=== PATIENT | male | born 1970 | race Caucasian/White ===

== ENCOUNTER 2017-10-02 12:59 | Emergency (ER) | payer OTHER ==
--- NOTE | 2017-10-02 13:10 | EDPHY ---
H & P Stated Complaint: heart feels fluttery after drinkng a lot of green tea Time Seen by Provider: 10/02/17 13:09 HPI/ROS: CHIEF COMPLAINT: [ ] HISTORY OF PRESENT ILLNESS: [Need 4: Location, Duration, Severity, Quality, Context, Timing Modifying Factors, Associated S&S] REVIEW OF SYSTEMS: A comprehensive 10 point review of systems is otherwise negative aside from elements mentioned in the history of present illness. Source: Patient Exam Limitations: No limitations - Personal History Current Tetanus Diphtheria and Acellular Pertussis (TDAP): Yes - Medical/Surgical History Other PMH: HTN. gout - Social History Smoking Status: Never smoked - Physical Exam Exam: General Appearance: [Alert, no distress] Eyes: [Pupils equal and round no pallor or injection] ENT, Mouth: [Mucous membranes moist] Respiratory: [There are no retractions, lungs are clear to auscultation] Cardiovascular: [Regular rate and rhythm] Gastrointestinal: [Abdomen is soft and nontender, no masses, bowel sounds normal] Neurological: [A&O, normal motor function, normal sensory exam, normal cranial nerves] Skin: [Warm and dry, no rashes] Musculoskeletal: [Neck is supple nontender] Extremities: [symmetrical, full range of motion] Psychiatric: [Patient is oriented X 3, there is no agitation] ions Constitutional: Initial Vital Signs Temperature (C) 36.5 C 10/02/17 13:00 Heart Rate 82 10/02/17 13:00 Respiratory Rate 18 10/02/17 13:00 Blood Pressure 142/84 H 10/02/17 13:00 O2 Sat (%) 95 10/02/17 13:00 O2 Delivery Mode Room Air Allergies/Adverse Reactions: No Known Allergies Allergy (Verified 10/02/17 13:03) Home Medications: Medication Instructions Recorded Allopurinol [Allopurinol 300 MG 300 mg PO DAILY 08/20/12 (RX)] Amlodipine Besylate 10 mg PO DAILY 08/20/12 Lisinopril [Zestril 20 mg (RX)] 20 mg PO DAILY 08/20/12 Metoprolol Succinate Xr [Toprol Xl 100 mg PO DAILY 08/20/12 100 mg (RX)] Departure - Departure Referrals: Andrew Oscar MD [Primary Care Provider] - As per Instructions
--- NOTE | 2017-10-02 13:40 | EDPHY ---
H & P Time Seen by Provider: 10/02/17 13:09 HPI/ROS: HPI Rapid heart rate, shaking. 47-year-old male by private vehicle. This patient reports that he drank a large amount of green tea this morning. He reports that at approximately 11:30 a.m. He was making his lunch for work when he started feeling very anxious, noticed that his heart rate was fast, he started shaking and trembling in his hands and sweating. By the time he came to the emergency department these symptoms had mostly dissipated. He feels relaxed and comfortable on my encounter and denies any complaints currently. He denies any chest pain or shortness of breath but stated that he felt some tightness in his chest and during the symptoms. He reports that he has had cough in the past as well as green tea and is not have this effect. He does state that he may have had more green tea that he usually drinks. ROS: Constitutional: No fever, no chills. As above. Eyes: No discharge. No changes in vision. ENT: No sore throat. No nasal congestion or rhinorrhea. Respiratory: No cough. No shortness of breath. Cardiac: No chest pain, as above. Gastrointestinal: No abdominal pain, no vomiting, no diarrhea. Genitourinary: No hematuria. No dysuria or increased frequency with urination. Musculoskeletal: No back pain. No neck pain. No myalgias or arthralgias. Skin: No rashes. Neurological: No headache. No focal weakness or altered sensation. Past medical history: Hypertension, gout. He takes amlodipine, lisinopril, metoprolol and allopurinol. Social history: Here by himself. Not alcohol. Nonsmoker. Denies ingestion of any other stimulants. No IV drugs or street drugs. Physical Exam: General Appearance: Alert, no distress. This patient is responding to questions appropriately and in full sentences. This patient appears well- hydrated and well-nourished. Eyes: Pupils equal and round no pallor or injection. No lid edema, erythema or injection. Respiratory: There are no retractions, lungs are clear to auscultation with good air movement bilaterally. Cardiovascular: Regular rate and rhythm. No murmur. Neurological: Motor sensory function is grossly intact. Cranial nerves are normal. Gait is normal. Skin: Warm and dry, no rashes. Musculoskeletal: Neck is supple and nontender. Extremities are symmetrical. All joints range without pain or impingement. Psychiatric: No agitation. No depression. Database: EKG: EKG time is 1:43 p.m.; EKG shows a narrow complex normal sinus rhythm with a ventricular rate of 69. Short NH Interval noted. The QRS, QT intervals are within normal limits nonspecific T-wave abnormalities with T-wave inversion noted in 1, 2, V4 through V6. There are no ST-T wave changes indicative of ischemic or injury pattern. No evidence of right heart strain. Interpreted by me. Imaging: Procedures: Emergency department course: Vital signs reviewed. He is mildly hypertensive. Vital signs otherwise normal. As of 1:40 p.m., he appears relaxed and comfortable and denies any other complaints. 3:00 p.m., patient re-evaluated. Resting comfortably at this time. Asymptomatic. No complaints. Vital signs reviewed and are normal. Blood pressure currently 116/74. court monitor shows a narrow complex sinus rhythm with ventricular rate of 68. I discussed the results of his blood work as well as his EKG. I explained my concerns regarding the above EKG findings. I discussed admission to telemetry for observation and serial troponin testing overnight. He does not want to do this. I also discussed further observation in the emergency department and a repeat troponin in three hours. He declines this as well. He is requesting discharge. The patient competently engages in shared decision making. They demonstrate capacitance to make decisions. In my professional opinion he understands the risks of being discharged. Plan will be to have him follow up closely with 1 of our peach grow[facility] at [facility] for re-evaluation and further management. He has been instructed not to drink any caffeinated beverages or ingest any other stimulants. I have also instructed him not to engage in any strenuous physical activity until he has been cleared by Cardiology. Return to emergency department precautions were thoroughly discussed with him. All of his questions were answered. He was discharged in good condition. Differential Diagnosis: The differential diagnosis on this patient includes but is not limited to reaction to caffeine, anxiety reaction. Acute coronary syndrome, pulmonary embolism, arrhythmia, infection, hypoglycemia, potassium abnormality unlikely. This represents a partial list of diagnoses considered. These considerations are based on history, physical exam, past history, reassessment and diagnostic testing. Smoking Status: Never smoked Constitutional: Initial Vital Signs Temperature (C) 36.5 C 10/02/17 13:00 Heart Rate 82 10/02/17 13:00 Respiratory Rate 18 10/02/17 13:00 Blood Pressure 142/84 H 10/02/17 13:00 O2 Sat (%) 95 10/02/17 13:00 O2 Delivery Mode Room Air Allergies/Adverse Reactions: No Known Allergies Allergy (Verified 10/02/17 13:03) Home Medications: Medication Instructions Recorded Allopurinol [Allopurinol 300 MG 300 mg PO DAILY 08/20/12 (RX)] Amlodipine Besylate 10 mg PO DAILY 08/20/12 Lisinopril [Zestril 20 mg (RX)] 20 mg PO DAILY 08/20/12 Metoprolol Succinate Xr [Toprol Xl 100 mg PO DAILY 08/20/12 100 mg (RX)] Medical Decision Making - Data Points Laboratory Results: Laboratory Results 10/02/17 13:54 10/02/17 13:54 Departure - Departure Disposition: Home, Routine, Self-Care Clinical Impression: Rapid palpitations, Adverse reaction to caffeine, Abnormal EKG Condition: Good Instructions: Heart Palpitations (ED) Additional Instructions: Read and follow provided instructions. Follow-up with Cardiology, Dr. David Acosta or 1 of his partners at [facility], within the next 2-3 days for re-evaluation as discussed. Do not drink any caffeinated beverages or ingest other stimulants. Continue taking your blood pressure medication as prescribed. No strenuous activity until cleared by Cardiology. Return to the emergency department for worsening symptoms, palpitations, chest pain, shortness of breath or other serious concerns. Referrals: Andrew Oscar MD [Primary Care Provider] - As per Instructions Arturo Acosta MD [Medical Doctor] - As per Instructions
--- NOTE | 2017-10-02 13:45 | CPEKG ---
Heart Rate: 69 RR Interval: 870 P-R Interval: 96 QRSD Interval: 94 QT Interval: 404 QTC Interval: 433 P Murray: 27 QRS Murray: 48 T Wave Murray: 232 EKG Severity - ABNORMAL ECG - EKG Impression: SINUS RHYTHM EKG Impression: SHORT ID INTERVAL, ACCELERATED AV CONDUCTION EKG Impression: NONSPECIFIC T ABNORMALITIES, DIFFUSE LEADS Electronically Signed By: Alen Green 02-Oct-2017 20:28:12
[2017-10-02 14:11] LABS: PLATELET COUNT 241 10^3/uL (150-400)
[2017-10-02 14:23] LABS: CREATINE KINASE 182 IU/L (0-224)
[2017-10-02 15:22] VITALS: BP 116/74; PULSE 72; RESP 16; TEMP 98.2; O2SAT 94
== END 2017-10-02 15:24 | disposition home or self-care (01) ==
DX: R00.2 Palpitations (principal); T43.615A Adverse effect of caffeine, initial encounter; R94.31 Abnormal electrocardiogram [ECG] [EKG]; I10 Essential (primary) hypertension
CPT/HCPCS: 82947-QW